=== PATIENT | female | born 1980 | race Hispanic/Latino ===

== ENCOUNTER 2018-12-03 04:22 | Emergency (ER) | payer BC, OTHER ==
[2018-12-03] MEDS ORDERED: ALBUTEROL SULFATE 0.083% 2.5 MG/3 ML INH IH ONE (04:48)
[2018-12-03] MEDS ORDERED: LIDOCAINE HCL 2% VISCOUS 15 ML UDCUP ONE (04:55)
[2018-12-03] MEDS ORDERED: MAG HYDROX/AL HYDROX/SIMETH ES 30 ML SUSP UDCUP ONE (04:56)
[2018-12-03] MEDS ORDERED: PREDNISONE 20 MG TABLET ONE (05:49)
== END 2018-12-03 06:20 | disposition home or self-care (01) ==
LOC: EDH 04:22
DX: B34.9 Viral infection, unspecified (principal)
CPT/HCPCS: 71046; 94640